=== PATIENT | female | born 1945 | race Caucasian/White ===

== ENCOUNTER 2017-02-10 12:48 | Emergency (ER) | payer OTHER ==
[~2017-02-10] VITALS: Ht 162.6 cm; Wt 61.0 kg
[2017-02-10 12:53] VITALS: BP 145/71; PULSE 87; RESP 16; TEMP 97.3; O2SAT 96
[2017-02-10] MEDS ORDERED: PENI500T PO (13:08)
--- NOTE | 2017-02-10 13:10 | PD ---
HPI Chief Complaint: Oral / Dental Pain or Problem Time Seen by Provider: 12:58 Travel History International Travel<30 days: No Contact w/Intl Traveler<30days: No Traveled to known affect area: No History of Present Illness HPI 71-year-old female presents to emergency department complaining of right upper tooth pain for days. Patient states the pain is constant and throbbing and radiates to her right forehead. Patient describes her pain as mild to moderate. She has taken Tylenol with some relief but is continues to have pain today. States she felt feverish 2 days ago but this has since resolved. Denies inciting events. Says she has required a root canal previously and this is what her symptoms feel like now. Patient states that she called her dentist and explained the symptoms and he advised she come here for evaluation. Patient denies chronic medical issues or chronic medication use. Denies chest pain or shortness of breath. PFSH Past Surgical History Other Surgery: Yes (LAPROSCOPIC) Social History Alcohol Use: Yes (OCC WINE WITH DINNER) Tobacco Use: No Substance Use: No Allergies-Medications (Allergen,Severity, Reaction): Coded Allergies: Sulfa (Sulfonamide Antibiotics) (Unverified Allergy, Unknown, Hives, 02/10) Reported Meds & Prescriptions Reported Meds & Active Scripts Active No Active Prescriptions or Reported Medications Review of Systems Except as stated in HPI: all other systems reviewed are Neg Physical Exam Narrative GENERAL: Well-nourished, well-developed patient. SKIN: Focused skin assessment warm/dry. HEAD: Normocephalic. EYES: No scleral icterus. No injection or drainage. NECK: Supple, trachea midline. No JVD or lymphadenopathy. Mouth- multiple caries with fillings, gingiva nontender to palpation. Mild right maxillary sinus tenderness without significant erythema or edema CARDIOVASCULAR: Regular rate and rhythm without murmurs, gallops, or rubs. RESPIRATORY: Breath sounds equal bilaterally. No accessory muscle use.. MUSCULOSKELETAL: No cyanosis, or edema. BACK: Nontender without obvious deformity. No CVA tenderness. Data Data Last Documented VS Vital Signs Date Time Temp Pulse Resp B/P (MAP) Pulse Ox O2 Delivery O2 Flow Rate FiO2 02/10/17 12:53 97.3 87 16 145/71 (95) 96 MDM Medical Decision Making Medical Screen Exam Complete: Yes Emergency Medical Condition: Yes Differential Diagnosis Right upper dental abscess, gingivitis, sinusitis Narrative Course 71-year-old female presents to emergency department complaining of right upper tooth pain for days. Patient states the pain is constant and throbbing and radiates to her right forehead. Patient describes her pain as mild to moderate. She has taken Tylenol with some relief but is continues to have pain today. States she felt feverish 2 days ago but this has since resolved. Denies inciting events. Says she has required a root canal previously and this is what her symptoms feel like now. Patient states that she called her dentist and explained the symptoms and he advised she come here for evaluation. Patient denies chronic medical issues or chronic medication use. Denies chest pain or shortness of breath. Denies recent upper respiratory infection. Vital signs stable Physical exam findings consistent with sinusitis versus dental infection. Patient states that she will follow-up with her dentist tomorrow. Pen VK prescribed for likely infection. Patient advised follow-up with the dentist as discussed. Return to the emergency department for worsening or persistent symptoms. Advised on symptoms to out for regarding her infectious process. Diagnosis Primary Impression: Dental infection Referrals: Dentist Additional Instructions: Follow up with your primary care physician within 2-3 days. If your symptoms persist or worsen, return to the emergency department. Follow-up with the dentist tomorrow as discussed. Scripts Penicillin V Potassium (Penicillin V Potassium) 500 Mg Tab 500 MG PO Q8H for Infection for 7 Days, #21 TAB 0 Refills Prov: Sola Guevara 02/10/17 Disposition: 01 DISCHARGE HOME Condition: Stable Sola Guevara Feb 10, 2017 13:10
== END 2017-02-10 13:19 | disposition home or self-care (01) ==
LOC: PHEFT 12:48
DX: K04.7 Periapical abscess without sinus (principal)
CPT/HCPCS: 99283